=== PATIENT | female | born 1995 | race Caucasian/White ===

== ENCOUNTER 2017-06-24 11:05 | Emergency (ER) | payer SELFPAY ==
[~2017-06-24] VITALS: Ht 162.6 cm; Wt 75.0 kg
[~2017-06-24 11:05] MED LIST: DEPO-PROVER150 MG/M1 IM
[2017-06-24 12:25] LABS: INFLUENZA A NONE DETECTED (NONE DETECT); INFLUENZA B NONE DETECTED (NONE DETECT)
[2017-06-24 12:41] VITALS: BP 130/70
[2017-06-24] MEDS ORDERED: MOTRIN800 MG PO (12:41)
[2017-06-24] MEDS ORDERED: TESSALON PER100 MG PO (12:41)
[2017-06-24] MEDS ORDERED: AFRIN 12 HOUR0.05 % (12:41)
== END 2017-06-24 12:45 | disposition home or self-care (01) | DRG 153 ==
LOC: ED 11:05
PROVIDERS: Emergency Medicine
DX: J06.9 Acute upper respiratory infection, unspecified (principal); F17.210 Nicotine dependence, cigarettes, uncomplicated

== ENCOUNTER 2018-08-17 17:35 | Emergency (ER) | payer OTHER ==
[~2018-08-17] VITALS: Ht 162.6 cm; Wt 80.0 kg
[~2018-08-17 17:35] MED LIST changes: +AFRIN 12 HOUR0.05 %; +MOTRIN800 MG PO; +TESSALON PER100 MG PO
[2018-08-17 18:49] LABS: HEMATOCRIT 42.2 % (37.0-47.0); HEMOGLOBIN 13.9 g/dl (12.0-16.0); IMMATURE GRANULOCYTES 0.3 % (0.0-5.0); MEAN CELL VOLUME 91.9 fL CALC (80.0-100.0); MEAN CORPUSCULAR HGB 30.3 pG CALC (26.0-32.0); MEAN CORPUSCULAR HGB CONC 32.9 g/L CALC (32.0-36.0); NEUT# 9.58 thou/uL (2.00-7.15); RED BLOOD COUNT 4.59 mill/uL (4.20-5.60); RED CELL DISTRI WIDTH 12.7 % (11.5-15.5)
[2018-08-17 18:51] LABS: URINE BILIRUBIN - DIPSTICK NEGATIVE (NEGATIVE); URINE BLOOD DIPSTICK MODERATE (NEGATIVE); URINE COLOR YELLOW; URINE GLUCOSE - DIPSTICK NEGATIVE (NEGATIVE); URINE KETONE NEGATIVE (NEGATIVE); URINE LEUK ESTERASE NEGATIVE (NEGATIVE); URINE NITRITE - DIPSTICK NEGATIVE (Negative); URINE PH 7.5 (4.5-8.0); URINE PROTEIN - DIPSTICK NEGATIVE (NEG-TRACE); URINE UROBILINOGEN - DIPSTICK 0.2 E.U./dL (0.2)
[2018-08-17 18:58] LABS: URINE AMORPH SEDIMENT MANY hpf (NONE-FEW); URINE SQUAMOUS EPITHELIAL CELL FEW EPI/hpf (0-FEW); URINE WBC 0-2 WBC/hpf (0-5)
[2018-08-17 19:06] LABS: ALBUMIN 4.6 g/dL (3.2-5.0); ALKALINE PHOSPHATASE 73 u/l (38-126); ANION GAP 16 (6-22 (CALC)); BILIRUBIN, TOTAL 0.4 mg/dL (0.0-1.4); BUN 6 mg/dL (7-17); BUN/CREATININE RATIO 15 (12-20 (CALC)); CARBON DIOXIDE 25 mmol/l (22-30); CHLORIDE 103 mmol/l (95-108); CREATININE 0.4 mg/dL (0.5-1.0); GFR > 60 ML/MIN (>=60 (CALC)); GFR FOR AFR.AMER. > 60 ML/MIN (>=60 (CALC)); POTASSIUM 3.6 mmol/l (3.5-5.1); SGOT/AST 13 u/l (14-36); SODIUM 140 mmol/l (137-146); TOTAL PROTEIN 7.4 g/dL (6.3-8.2)
[2018-08-17 19:49] LABS: BETA-HCG, QUANT(RESULT NUMBER) 22259 mIU/mL
[2018-08-17 20:15] VITALS: BP 137/56
== END 2018-08-17 20:20 | disposition home or self-care (01) | DRG 833 ==
LOC: ED 17:35
PROVIDERS: Emergency Medicine
DX: O20.0 Threatened abortion (principal); Z3A.08 8 weeks gestation of pregnancy

== ENCOUNTER → 2018-08-18 | Outpatient (REF) | payer SELFPAY | END | disposition home or self-care (01) | DRG 833 | LOC: ULTRASND 10:18 | PROVIDERS: ATTEND Emergency Medicine | DX: O20.0 Threatened abortion (principal) ==

== ENCOUNTER → 2018-08-24 | Outpatient (REF) | payer OTHER | END | disposition home or self-care (01) | DRG 833 | LOC: ULTRASND 16:11 | DX: O20.0 Threatened abortion (principal) ==

== ENCOUNTER → 2018-08-30 | Outpatient (REF) | payer OTHER | END | disposition home or self-care (01) | DRG 779 | LOC: LAB 13:49 | PROVIDERS: ATTEND Obstetrics & Gynecology | DX: O03.4 Incomplete spontaneous abortion without complication (principal) ==

== ENCOUNTER → 2018-09-03 | Outpatient (REF) | payer OTHER | END | disposition home or self-care (01) | DRG 779 | LOC: LAB 12:53 → ULTRASND 12:53 | DX: O03.4 Incomplete spontaneous abortion without complication (principal) ==

== ENCOUNTER 2020-01-27 15:17 | Emergency (ER) | payer OTHER, MEDICAID ==
[~2020-01-27] VITALS: Ht 162.6 cm; Wt 81.0 kg
[2020-01-27] MEDS ORDERED: OMEGA PO (15:41)
[2020-01-27] MEDS ORDERED: PRENATAL PO (15:41)
[2020-01-27 16:17] LABS: URINE BILIRUBIN - DIPSTICK NEGATIVE (NEGATIVE); URINE BLOOD DIPSTICK NEGATIVE (NEGATIVE); URINE COLOR YELLOW; URINE GLUCOSE - DIPSTICK NEGATIVE (NEGATIVE); URINE KETONE 15 mg/dL (NEGATIVE); URINE LEUK ESTERASE NEGATIVE (NEGATIVE); URINE NITRITE - DIPSTICK NEGATIVE (Negative); URINE PH 5.5 (4.5-8.0); URINE PROTEIN - DIPSTICK NEGATIVE (NEG-TRACE); URINE SPECIFIC GRAVITY >=1.030; URINE UROBILINOGEN - DIPSTICK 0.2 E.U./dL (0.2)
[2020-01-27 16:25] LABS: HEMATOCRIT 36.3 % (37.0-47.0); IMMATURE GRANULOCYTES 0.9 % (0.0-5.0); MEAN CORPUSCULAR HGB 29.1 pG CALC (26.0-32.0); NEUT# 9.97 thou/uL (2.00-7.15); RED BLOOD COUNT 3.99 mill/uL (4.20-5.60); RED CELL DISTRI WIDTH 13.2 % (11.5-15.5)
[2020-01-27 16:37] LABS: ALBUMIN 4.1 g/dL (3.2-5.0); ALKALINE PHOSPHATASE 84 u/l (38-126); ANION GAP 11 (6-22 (CALC)); BILIRUBIN, TOTAL 0.4 mg/dL (0.0-1.4); BUN 6 mg/dL (7-17); BUN/CREATININE RATIO 14 (12-20 (CALC)); CARBON DIOXIDE 24 mmol/l (22-30); CHLORIDE 104 mmol/l (95-108); CREATININE 0.4 mg/dL (0.5-1.0); GFR > 60 ML/MIN (>=60 (CALC)); GFR FOR AFR.AMER. > 60 ML/MIN (>=60 (CALC)); POTASSIUM 3.4 mmol/l (3.5-5.1); SGOT/AST 16 u/l (14-36); SODIUM 135 mmol/l (137-146); TOTAL PROTEIN 7.6 g/dL (6.3-8.2)
[2020-01-27 16:38] LABS: ACT PARTIAL THROMBO TIME 23.5 SECONDS (20.0-32.5); PROTHROMBIN TIME 9.7 SECONDS (9.0-12.5)
[2020-01-27 16:42] LABS: HEMOGLOBIN 11.6 g/dl (12.0-16.0)
[2020-01-27 16:54] LABS: BETA-HCG, QUANT(RESULT NUMBER) 7642 mIU/mL
[2020-01-27 17:52] VITALS: BP 111/62
== END 2020-01-27 17:49 | disposition home or self-care (01) | DRG 833 ==
LOC: ED 15:17
PROVIDERS: Student in an Organized Health Care Education/Training Program
DX: O26.892 Other specified pregnancy related conditions, second trimester (principal); R10.30 Lower abdominal pain, unspecified; Z3A.27 27 weeks gestation of pregnancy

== ENCOUNTER 2024-06-23 07:17 | Emergency (ER) | payer MEDICAID ==
[~2024-06-23] VITALS: Ht 162.6 cm; Wt 72.0 kg
[2024-06-23] VITALS (7 sets, daily range): BP systolic 113–130; BP diastolic 58–84
[~2024-06-23 07:17] MED LIST changes: +AMOX/K CLAV875 M1 PO; +OMEGA PO; +PRENATAL PO
[2024-06-23] MEDS ORDERED: KETOROLAC TROMETHAMINE 30 MG/ML SDV IM ONE (08:10)
[2024-06-23] MEDS ORDERED: DEXAMETHASONE SOD. PHOSPHATE 10 MG/ML VIAL IM ONE (08:10)
[2024-06-23] MEDS ORDERED: DiphenhydrAMINE HCL 50 MG/ML SDV IV ONE (08:15)
[2024-06-23] MEDS ORDERED: FAMOTIDINE 10MG/ML 2ML SDV IV ONE (08:15)
[2024-06-23] MEDS ORDERED: EPINEPHrine HCL 1 MG/ML AMP IM ONE (08:15)
[2024-06-23 08:46] LABS: BASO% 0.2 % (0-3); EOS% 1.1 % (0-8); IMMATURE GRANULOCYTES 0.2 % (0.0-5.0); LYMPH% 11.4 % (15-41); MEAN CELL VOLUME 86.7 fL CALC (80.0-100.0); MEAN CORPUSCULAR HGB 27.7 pG CALC (26.0-32.0); MEAN CORPUSCULAR HGB CONC 31.9 g/dL CAL (32.0-36.0); MONO% 6.7 % (2-13); NEUT# 7.25 thou/uL (2.00-7.15); NEUT% 80.4 % (42-76); RED BLOOD COUNT 4.81 mill/uL (4.20-5.60)
[2024-06-23 08:51] LABS: HEMATOCRIT 41.7 % (37.0-47.0); HEMOGLOBIN 13.3 g/dl (12.0-16.0)
[2024-06-23 08:56] LABS: ALBUMIN 4.8 g/dL (3.2-5.0); CREATININE 0.6 mg/dL (0.5-1.0); POTASSIUM 3.5 mmol/l (3.5-5.1); TOTAL PROTEIN 8.2 g/dL (6.3-8.2)
[2024-06-23 08:58] LABS: HCG SERUM/URINE (NEG/POS) NEGATIVE (NEGATIVE)
[2024-06-23 08:59] LABS: BILIRUBIN, TOTAL 0.8 mg/dL (0.02-1.3)
[2024-06-23] MEDS ORDERED: EPIPEN 2-P0.3 MG/0.3 IM (11:46)
[2024-06-23] MEDS ORDERED: ALL DAY10 MG PO (11:47)
[2024-06-23] MEDS ORDERED: PREDNISONE50 MG PO (11:47)
== END 2024-06-23 11:54 | disposition home or self-care (01) ==
LOC: ED 07:17
PROVIDERS: Family Medicine
DX: T78.40XA Allergy, unspecified, initial encounter (principal); X58.XXXA Exposure to other specified factors, initial encounter; Z20.822 Contact with and (suspected) exposure to COVID-19
CPT/HCPCS: J1100; J1200